=== PATIENT | female | born 1945 | race Caucasian/White ===

== ENCOUNTER → 2016-11-18 | Outpatient (REF) | payer MEDICARE ==
[2016-11-18 18:03] LABS: BLOOD UREA NITROGEN 21 MG/DL (7-18); CREATININE FOR GFR 0.79 MG/DL (0.55-1.02); GLOMERULAR FILTRATION RATE > 60.0 (>39)
== END ==
LOC: M LABDRAW1 17:08
PROVIDERS: ATTEND Physician Assistant Surgical
DX: M54.5 Low back pain (principal)

== ENCOUNTER → 2017-03-29 | Outpatient (REF) | payer MEDICARE ==
[2017-03-29 11:12] LABS: MEAN CORPUSCULAR HEMOGLOBIN 31.9 pg (27.0-33.0); MEAN CORPUSCULAR HGB CONC 33.8 g/dl (32.0-36.5); MEAN CORPUSCULAR VOLUME 94.4 fl (80.0-96.0); WHITE BLOOD COUNT 7.8 K/mm3 (4.0-10.0)
[2017-03-29 11:46] LABS: ALBUMIN 4.1 GM/DL (3.2-5.2); ALBUMIN/GLOBULIN RATIO 1.11 (1.00-1.93); ALKALINE PHOSPHATASE 74 U/L (45-117); ALT/SGPT 31 U/L (12-78); ANION GAP 8 MEQ/L (8-16); AST/SGOT 19 U/L (15-37); BILIRUBIN,TOTAL 0.8 MG/DL (0.2-1.0); BLOOD UREA NITROGEN 30 MG/DL (7-18); CALCIUM LEVEL 9.6 MG/DL (8.8-10.2); CARBON DIOXIDE LEVEL 30 MEQ/L (21-32); CHLORIDE LEVEL 101 MEQ/L (98-107); CHOLESTEROL LEVEL 200 MG/DL (<200); CREATININE FOR GFR 0.75 MG/DL (0.55-1.02); GLOMERULAR FILTRATION RATE > 60.0 (>39); GLUCOSE, FASTING 120 MG/DL (83-110); MAGNESIUM LEVEL 2.2 MG/DL (1.8-2.4); POTASSIUM SERUM 4.6 MEQ/L (3.5-5.1); SODIUM LEVEL 139 MEQ/L (136-145); TOTAL PROTEIN 7.8 GM/DL (6.4-8.2); TRIGLYCERIDES LEVEL 96 MG/DL (<150)
[2017-03-29 11:48] LABS: VITAMIN B12 LEVEL 652 PG/ML
== END ==
LOC: M SFHCPLAZ 08:38
PROVIDERS: ATTEND Nurse Practitioner Family
DX: D51.8 Other vitamin B12 deficiency anemias (principal); E88.81 Metabolic syndrome and other insulin resistance; E55.9 Vitamin D deficiency, unspecified; Z79.899 Other long term (current) drug therapy

== ENCOUNTER → 2017-08-30 | Outpatient (REF) | payer MEDICARE ==
[2017-08-30 12:17] LABS: ALBUMIN 4.1 GM/DL (3.2-5.2); ALBUMIN/GLOBULIN RATIO 1.21 (1.00-1.93); ALKALINE PHOSPHATASE 70 U/L (45-117); ALT/SGPT 26 U/L (12-78); ANION GAP 7 MEQ/L (8-16); AST/SGOT 16 U/L (15-37); BILIRUBIN,TOTAL 0.8 MG/DL (0.2-1.0); BLOOD UREA NITROGEN 24 MG/DL (7-18); CALCIUM LEVEL 9.8 MG/DL (8.8-10.2); CARBON DIOXIDE LEVEL 28 MEQ/L (21-32); CHLORIDE LEVEL 106 MEQ/L (98-107); CREATININE FOR GFR 0.72 MG/DL (0.55-1.02); GLOMERULAR FILTRATION RATE > 60.0 (>39); GLUCOSE, FASTING 104 MG/DL (83-110); POTASSIUM SERUM 4.6 MEQ/L (3.5-5.1); SODIUM LEVEL 141 MEQ/L (136-145); TOTAL PROTEIN 7.5 GM/DL (6.4-8.2)
== END ==
LOC: M SFHCPLAZ 10:46
PROVIDERS: ATTEND Nurse Practitioner Family
DX: E88.81 Metabolic syndrome and other insulin resistance (principal); E55.9 Vitamin D deficiency, unspecified

== ENCOUNTER → 2017-08-30 | Outpatient (CLI) | payer MEDICARE ==
--- NOTE | 2017-08-30 12:32 | REP ---
MAMMOGRAM LEFT BREAST: HISTORY: Right breast cancer and mastectomy. Family history of mother with breast cancer. MLO and CC views of the left breast are performed including implant displaced views. Left breast implant demonstrates contour abnormality superiorly, which may represent an intracapsular rupture of the implant. The breast parenchyma itself is predominantly fatty replaced with no mass or architectural distortion. No clustered microcalcifications are seen. Small benign appearing axillary lymph nodes are seen. IMPRESSION: ACR 2 benign. No suspicious mass or clustered microcalcifications. However, there is contour abnormality of the superior aspect of the breast implant which may indicate intracapsular rupture. BI-RADS/ACR category 2 mammogram. Benign finding(s). Routine annual screening mammography (for women over age 40). This mammogram was interpreted with the aid of an FDA-approved computer-aided detection system. A. Negative x-ray reports should not delay biopsy if a dominant or clinically suspicious mass is present. B. Four to eight percent of cancers are not identified by x-ray. C. Adenosis and dense breasts may obscure an underlying neoplasm. The patient states she/he had a clinical breast exam in July 2017. The patient letter being requested is M1.
--- NOTE | 2017-08-31 09:29 | DEXA ---
AP SPINE L1 - L4 1.083 -0.9 0.8 LT FEMUR TOTAL 0.882 -1.0 0.7 RT FEMUR TOTAL 0.827 -1.4 0.2 TOTAL BODY TOTAL OTHER DUAL FEMUR FRAX* ASSESSMENT Risk factors: 10 year probability of fracture Major osteoporotic fracture % Hip fracture % COMMENTS: Normal bone densitometry of the spine. There is low bone density of the hips. The decreased density of the spine does represent a significant change. The decreased density of the left hip does not represent a significant change. The decreased density of the right hip does represent a significant change. The density of the spine has increased 4.8% since the initial exam on 10/2004. The spine density has decreased 2.8% since the most recent exam on 08/2015. The density of the left hip has decreased 9.4% since the initial exam on 2008. The density of the left hip has decreased 0.6% since the most recent exam on 2014. The density of the right hip has decreased 8.6% since the initial exam on 2006. The density of the right hip has decreased 4.3% since the most recent exam on . FOLLOW-UP: Recommendation for the next bone density exam: 2 years. AMOLD
== END ==
LOC: M WHC 10:58
PROVIDERS: ATTEND Obstetrics & Gynecology
DX: Z12.31 Encounter for screening mammogram for malignant neoplasm of breast (principal); Z13.820 Encounter for screening for osteoporosis; E88.81 Metabolic syndrome and other insulin resistance; E55.9 Vitamin D deficiency, unspecified; M81.0 Age-related osteoporosis without current pathological fracture; Z85.3 Personal history of malignant neoplasm of breast; Z80.3 Family history of malignant neoplasm of breast; Z79.899 Other long term (current) drug therapy
CPT/HCPCS: 36415; 77080; 80053; 82306; 83036; G0202

== ENCOUNTER → 2018-03-02 | Outpatient (REF) | payer MEDICARE ==
[2018-03-02 11:02] LABS: HEMATOCRIT 41.9 % (36.0-47.0); HEMOGLOBIN 13.8 g/dl (12.0-15.5); MEAN CORPUSCULAR HEMOGLOBIN 30.1 pg (27.0-33.0); MEAN CORPUSCULAR HGB CONC 32.9 g/dl (32.0-36.5); MEAN CORPUSCULAR VOLUME 91.3 fl (80.0-96.0); PLATELET COUNT, AUTOMATED 291 10^3/uL (150-450); RED BLOOD COUNT 4.59 10^6/uL (4.00-5.40); RED CELL DISTRIBUTION WIDTH 12.3 % (11.5-14.5); WHITE BLOOD COUNT 6.6 10^3/uL (4.0-10.0)
[2018-03-02 11:20] LABS: ESTIMATED AVERAGE GLUCOSE 128 MG/DL (60-110); HEMOGLOBIN A1c 6.1 %
[2018-03-02 11:25] LABS: ALBUMIN 4.3 GM/DL (3.2-5.2); ALBUMIN/GLOBULIN RATIO 1.23 (1.00-1.93); ALKALINE PHOSPHATASE 78 U/L (45-117); ALT/SGPT 23 U/L (12-78); ANION GAP 5 MEQ/L (8-16); AST/SGOT 15 U/L (7-37); BILIRUBIN,TOTAL 0.8 MG/DL (0.2-1.0); BLOOD UREA NITROGEN 25 MG/DL (7-18); CALCIUM LEVEL 9.7 MG/DL (8.8-10.2); CARBON DIOXIDE LEVEL 29 MEQ/L (21-32); CHLORIDE LEVEL 108 MEQ/L (98-107); CREATININE FOR GFR 0.79 MG/DL (0.55-1.30); GLOMERULAR FILTRATION RATE > 60.0 (>39); GLUCOSE, FASTING 114 MG/DL (70-100); POTASSIUM SERUM 4.6 MEQ/L (3.5-5.1); SODIUM LEVEL 142 MEQ/L (136-145); TOTAL PROTEIN 7.8 GM/DL (6.4-8.2)
[2018-03-02 11:37] LABS: TOTAL 25(OH) VITAMIN D 45.3 NG/ML (30.0-100.0)
[2018-03-02 11:38] LABS: VITAMIN B12 LEVEL 667 PG/ML
[2018-03-02 11:42] LABS: FOLATE 10.1 NG/ML
== END ==
LOC: M SFHCPLAZ 07:49
DX: E53.8 Deficiency of other specified B group vitamins (principal); E88.81 Metabolic syndrome and other insulin resistance; E55.9 Vitamin D deficiency, unspecified
CPT/HCPCS: 82746

== ENCOUNTER 2018-04-10 07:09 | Day surgery (SDC) | payer MEDICARE ==
[2018-04-10] MEDS: NS 1,000 ML IV ×2 (07:00)
[2018-04-10] MEDS ORDERED: LIDOCAINE 2% INJ 100 MG/5 ML SDV (FOR ANES.) As Ordered ×2 (08:20)
[2018-04-10] MEDS ORDERED: PROPOFOL 200 MG/20 ML VIAL As Ordered ×8 (08:20→08:35)
== END 2018-04-10 09:46 | disposition home or self-care (01) ==
LOC: M OPP 07:09
DX: R19.5 Other fecal abnormalities (principal); D12.2 Benign neoplasm of ascending colon; D12.3 Benign neoplasm of transverse colon; K57.30 Diverticulosis of large intestine without perforation or abscess without bleeding; K44.9 Diaphragmatic hernia without obstruction or gangrene; K21.9 Gastro-esophageal reflux disease without esophagitis; K29.70 Gastritis, unspecified, without bleeding; D51.0 Vitamin B12 deficiency anemia due to intrinsic factor deficiency; Z79.82 Long term (current) use of aspirin; Z79.899 Other long term (current) drug therapy; Z88.5 Allergy status to narcotic agent; Z88.8 Allergy status to other drugs, medicaments and biological substances; Z91.048 Other nonmedicinal substance allergy status; Z85.3 Personal history of malignant neoplasm of breast; Z90.711 Acquired absence of uterus with remaining cervical stump; Z87.891 Personal history of nicotine dependence; Z85.42 Personal history of malignant neoplasm of other parts of uterus; Z83.6 Family history of other diseases of the respiratory system; Z98.82 Breast implant status
CPT/HCPCS: 45385

== ENCOUNTER → 2018-08-31 | Outpatient (CLI) | payer MEDICARE | LOC: M WHC 09:59 | DX: Z12.31 Encounter for screening mammogram for malignant neoplasm of breast (principal) | CPT/HCPCS: 77067 ==

== ENCOUNTER 2018-09-04 07:23 | Day surgery (SDC) | payer MEDICARE ==
[~2018-09-04 07:23] MED LIST: LIDOCAINE 2% INJ 100 MG/5 ML SDV (FOR ANES.) As Ordered; PROPOFOL 200 MG/20 ML VIAL As Ordered
[2018-09-04] MEDS: NS 1,000 ML IV (07:56)
== END 2018-09-04 09:55 | disposition home or self-care (01) ==
LOC: M OPP 07:23
DX: Z12.11 Encounter for screening for malignant neoplasm of colon (principal); Z86.010 Personal history of colon polyps; D12.2 Benign neoplasm of ascending colon; K64.8 Other hemorrhoids; K57.30 Diverticulosis of large intestine without perforation or abscess without bleeding; M19.90 Unspecified osteoarthritis, unspecified site; Z85.3 Personal history of malignant neoplasm of breast; Z85.42 Personal history of malignant neoplasm of other parts of uterus; Z92.21 Personal history of antineoplastic chemotherapy; Z90.11 Acquired absence of right breast and nipple; K21.9 Gastro-esophageal reflux disease without esophagitis; Z87.891 Personal history of nicotine dependence; Z88.8 Allergy status to other drugs, medicaments and biological substances; Z88.5 Allergy status to narcotic agent; Z88.2 Allergy status to sulfonamides; Z91.048 Other nonmedicinal substance allergy status; Z79.82 Long term (current) use of aspirin; Z79.899 Other long term (current) drug therapy; Z80.9 Family history of malignant neoplasm, unspecified
CPT/HCPCS: 45385

== ENCOUNTER → 2019-01-08 | Outpatient (REF) | payer MEDICARE ==
[~2019-01-08] MED LIST changes: +ASPI81TA85 PO; +BENT10CA PO; +CALC500T21 PO; +CYAN1000VL IM; +LECI1200 PO; -LIDOCAINE 2% INJ 100 MG/5 ML SDV (FOR ANES.) As Ordered; +LUTE10TA PO; +MAGN500T2 PO; +NATU400T PO; +OMEG1CAP16 PO; -PROPOFOL 200 MG/20 ML VIAL As Ordered; +VITA20008 PO; +VITA500T PO
[2019-01-08 12:45] LABS: HEMATOCRIT 40.7 % (36.0-47.0); HEMOGLOBIN 13.5 g/dl (12.0-15.5); MEAN CORPUSCULAR HEMOGLOBIN 30.1 pg (27.0-33.0); MEAN CORPUSCULAR HGB CONC 33.2 g/dl (32.0-36.5); MEAN CORPUSCULAR VOLUME 90.8 fl (80.0-96.0); PLATELET COUNT, AUTOMATED 266 10^3/uL (150-450); RED BLOOD COUNT 4.48 10^6/uL (4.00-5.40); WHITE BLOOD COUNT 6.4 10^3/uL (4.0-10.0)
[2019-01-08 13:19] LABS: ALT/SGPT 25 U/L (12-78); BLOOD UREA NITROGEN 18 MG/DL (7-18); CALCIUM LEVEL 9.4 MG/DL (8.8-10.2); CARBON DIOXIDE LEVEL 28 MEQ/L (21-32); CHLORIDE LEVEL 106 MEQ/L (98-107); CHOLESTEROL LEVEL 168 MG/DL (<200); CHOLESTEROL RISK RATIO 3.169 (<5); CREATININE FOR GFR 0.71 MG/DL (0.55-1.30); GLOMERULAR FILTRATION RATE > 60.0 (>39); GLUCOSE, FASTING 99 MG/DL (70-100); HDL CHOLESTEROL 53 MG/DL (>40); LDL CHOLESTEROL 89 MG/DL (<100); NON-HDL-C 115 MG/DL; POTASSIUM SERUM 4.7 MEQ/L (3.5-5.1); SODIUM LEVEL 140 MEQ/L (136-145); TOTAL 25(OH) VITAMIN D 47.6 NG/ML (30.0-100.0); TOTAL PROTEIN 7.5 GM/DL (6.4-8.2); TRIGLYCERIDES LEVEL 130 MG/DL (<150)
[2019-01-08 15:41] LABS: HEMOGLOBIN A1c 6.3 %
== END ==
LOC: M SFHCPLAZ 08:57
PROVIDERS: ATTEND Nurse Practitioner Family
DX: E53.8 Deficiency of other specified B group vitamins (principal); E88.81 Metabolic syndrome and other insulin resistance; E55.9 Vitamin D deficiency, unspecified

== ENCOUNTER → 2019-07-25 | Outpatient (REF) | payer MEDICARE ==
[2019-07-25 10:14] LABS: HEMOGLOBIN A1c 5.8 %
[2019-07-25 10:27] LABS: ALT/SGPT 24 U/L (12-78); BILIRUBIN,TOTAL 0.7 MG/DL (0.2-1.0); BLOOD UREA NITROGEN 19 MG/DL (7-18); CALCIUM LEVEL 9.8 MG/DL (8.8-10.2); CARBON DIOXIDE LEVEL 28 MEQ/L (21-32); CHLORIDE LEVEL 107 MEQ/L (98-107); CREATININE FOR GFR 0.72 MG/DL (0.55-1.30); GLOMERULAR FILTRATION RATE > 60.0 (>39); GLUCOSE, FASTING 113 MG/DL (70-100); POTASSIUM SERUM 4.7 MEQ/L (3.5-5.1); SODIUM LEVEL 142 MEQ/L (136-145); TOTAL PROTEIN 7.1 GM/DL (6.4-8.2)
[2019-07-25 10:33] LABS: FOLATE 13.9 NG/ML; VITAMIN B12 LEVEL 944 PG/ML
== END ==
LOC: M SFHCPLAZ 08:14
PROVIDERS: ATTEND Nurse Practitioner Family
DX: R73.03 Prediabetes (principal); M85.80 Other specified disorders of bone density and structure, unspecified site; E53.8 Deficiency of other specified B group vitamins; Z79.82 Long term (current) use of aspirin; Z79.899 Other long term (current) drug therapy

== ENCOUNTER → 2019-09-04 | Outpatient (CLI) | payer MEDICARE ==
[~2019-09-04] MED LIST changes: +B-12100011 SL; +CALC-190 PO; +DICY20TA11 PO; +LECI1CAP PO; +LECI1CAP2 PO; +LOPE2TAB12 PO; +MAGN1CAP PO; +OCUV1CAP4 PO; +OMEGCAP4 PO; +PROBCAP14 PO; +VITA-157 PO; +VITA200020 PO; +VITA500C24 PO; +vitamin B12 SC
--- NOTE | 2019-09-04 14:13 | REP ---
UNILATERAL MAMMOGRAM LEFT BREAST WITH BREAST TOMOSYNTHESIS: HISTORY: Right breast cancer and mastectomy 1985. History of bilateral breast implants 2005. Family history of breast cancer at age 50 in mother. Left breast mammogram performed with digital tomosynthesis. Left breast implant is grossly intact with no evidence of extracapsular rupture. I see no mass or architectural distortion. No clustered microcalcifications are seen. There is no change since the prior study, most recent of which is 08/31/2018. IMPRESSION: BIRADS 1: BI-RADS/ACR category 1 mammogram. Negative Mammogram. ACR 1 negative mammogram left breast in this patient status post right mastectomy. Suggest followup mammogram in 1 year. This mammogram was interpreted with the aid of an FDA-approved computer-aided detection system. The patient states he/she had a clinical breast exam in 07/2019. The patient letter being requested is M1.
--- NOTE | 2019-09-09 15:46 | DEXA ---
AP SPINE L1 - L4 1.133 -0.5 1.3 LT FEMUR TOTAL 0.835 -1.4 0.4 LT NECK 0.811 -1.6 0.3 RT FEMUR TOTAL 0.801 -1.6 0.1 RT NECK 0.795 -1.7 0.2 TOTAL BODY TOTAL OTHER COMMENTS: Normal bone densitometry of the spine. There is low bone density of the hips. The increased density of the spine does represent a significant change. The decreased density of the left hip does represent significant change. The decreased density of the right hip does represent a significant change. The density of the spine has increased 9.7% since the initial exam on 11/10/2004. The spine density has increased 4.6% since the most recent exam on 08/30/2017. The density of the left hip has decreased 14.2% since the initial exam on 10/22/2009. The density of the left hip has decreased 5.3% since the most recent exam on 08/30/2017. The density of the right hip has decreased 11.5% since the initial exam on 05/30/2007. The density of the right hip has decreased 3.1% since the most recent exam on 08/30/2017. FOLLOW-UP: Recommendation for the next bone density exam: 2 years. CELINA
== END ==
LOC: M WHC 10:27
PROVIDERS: ATTEND Obstetrics & Gynecology
DX: Z12.31 Encounter for screening mammogram for malignant neoplasm of breast (principal); Z13.820 Encounter for screening for osteoporosis; Z85.3 Personal history of malignant neoplasm of breast; Z90.11 Acquired absence of right breast and nipple; Z80.3 Family history of malignant neoplasm of breast; M85.851 Other specified disorders of bone density and structure, right thigh; M85.852 Other specified disorders of bone density and structure, left thigh

== ENCOUNTER 2019-09-13 08:15 | Day surgery (SDC) | payer MEDICARE ==
[~2019-09-13] VITALS: Ht 157.5 cm; Wt 76.7 kg
[~2019-09-13 08:15] MED LIST changes: +NS 1,000 ML IV ONE
--- NOTE | 2019-09-13 10:04 | ROOR ---
Patient Name: Anna Liriano Procedure Date: 09/13/2019 9:11 AM Date of : 1945 Age: 74 Room: [facility] Gender: Female Note Status: Finalized Procedure: Colonoscopy Indications: Change in bowel habits Providers: Wilver Parikh MD Referring MD: Chichi Sawant NP Requesting Provider: Medicines: Monitored Anesthesia Care Complications: No immediate complications. Procedure: Pre-Anesthesia Assessment: - Prior to the procedure, a History and Physical was performed, and patient medications and allergies were reviewed. The patient is competent. The risks and benefits of the procedure and the sedation options and risks were discussed with the patient. All questions were answered and informed consent was obtained. Patient identification and proposed procedure were verified by the physician, the nurse and the anesthesiologist in the procedure room. Mental Status Examination: alert and oriented. Airway Examination: normal oropharyngeal airway and neck mobility. Respiratory Examination: clear to auscultation. CV Examination: normal. Prophylactic Antibiotics: The patient does not require prophylactic antibiotics. Prior Anticoagulants: The patient has taken no previous anticoagulant or antiplatelet agents. ASA Grade Assessment: II - A patient with mild systemic disease. After reviewing the risks and benefits, the patient was deemed in satisfactory condition to undergo the procedure. The anesthesia plan was to use monitored anesthesia care (MAC). Immediately prior to administration of medications, the patient was re-assessed for adequacy to receive sedatives. The heart rate, respiratory rate, oxygen saturations, blood pressure, adequacy of pulmonary ventilation, and response to care were monitored throughout the procedure. The physical status of the patient was re-assessed after the procedure. The Colonoscope was introduced through the anus and advanced to the terminal ileum, with identification of the appendiceal orifice and IC valve. The colonoscopy was performed without difficulty. The patient tolerated the procedure well. The quality of the bowel preparation was good. The terminal ileum, ileocecal valve, appendiceal orifice, and rectum were photographed. Scope insertion time was 3 minutes. Scope withdrawal time was 10 minutes. The total duration of the procedure was 14 minutes. Findings: The perianal and digital rectal examinations were normal. The terminal ileum appeared normal. A diminutive polyp was found in the ascending colon. The polyp was sessile. The polyp was removed with a jumbo cold forceps. Resection and retrieval were complete. Verification of patient identification for the specimen was done by the physician and nurse using the patient's name, date and medical record number. Estimated blood loss was minimal. A diminutive polyp was found in the descending colon. The polyp was sessile. The polyp was removed with a jumbo cold forceps. Resection and retrieval were complete. Multiple small and large-mouthed diverticula were found from sigmoid to descending colon. There was no evidence of diverticular bleeding. Non-bleeding external and internal hemorrhoids were found during retroflexion. The hemorrhoids were medium-sized. Normal mucosa was found in the entire colon. Biopsies for histology were taken with a cold forceps from the rectosigmoid colon for evaluation of microscopic colitis. Impression: - The examined portion of the ileum was normal. - One diminutive polyp in the ascending colon, removed with a jumbo cold forceps. Resected and retrieved. - One diminutive polyp in the descending colon, removed with a jumbo cold forceps. Resected and retrieved. - Moderate diverticulosis from sigmoid to descending colon. There was no evidence of diverticular bleeding. - Non-bleeding external and internal hemorrhoids. - Normal mucosa in the entire examined colon. Biopsied. Recommendation: - Patient has a contact number available for emergencies. The signs and symptoms of potential delayed complications were discussed with the patient. Return to normal activities tomorrow. Written discharge instructions were provided to the patient. - High fiber diet. - Continue present medications. - Await pathology results. - Repeat colonoscopy in 3 years for surveillance of high-grade dysplasia and due to personal history of colon polyps in past Colonoscopy. - Telephone GI clinic for pathology results in 2 weeks. - Return to primary care physician. Wilver Parikh MD Wilver Parikh MD 09/13/2019 10:03:52 AM Electronically signed by Wilver Parikh MD Number of Addenda: 0 Note Initiated On: 09/13/2019 9:11 AM Estimated Blood Loss: Estimated blood loss was minimal.
[2019-09-13 10:10] VITALS: BP 163/89
[2019-09-13] MEDS ORDERED: LIDOCAINE 2% INJ 100 MG/5 ML SDV (FOR ANES.) As Ordered ONE (10:33)
[2019-09-13] MEDS ORDERED: PROPOFOL 500 MG/50 ML VIAL As Ordered ONE (10:33)
== END 2019-09-13 10:40 | disposition home or self-care (01) ==
LOC: M OPP 08:15
PROVIDERS: ATTEND Internal Medicine Gastroenterology
DX: K64.8 Other hemorrhoids (principal); D12.2 Benign neoplasm of ascending colon; D12.4 Benign neoplasm of descending colon; K57.30 Diverticulosis of large intestine without perforation or abscess without bleeding; R19.4 Change in bowel habit; Z79.82 Long term (current) use of aspirin; Z88.2 Allergy status to sulfonamides; Z88.5 Allergy status to narcotic agent; Z88.8 Allergy status to other drugs, medicaments and biological substances; Z91.048 Other nonmedicinal substance allergy status; Z85.3 Personal history of malignant neoplasm of breast; Z85.42 Personal history of malignant neoplasm of other parts of uterus; Z87.891 Personal history of nicotine dependence; Z92.21 Personal history of antineoplastic chemotherapy

== ENCOUNTER → 2020-01-15 | Outpatient (REF) | payer MEDICARE ==
[~2020-01-15] MED LIST changes: -NS 1,000 ML IV ONE
[2020-01-15 12:27] LABS: ALBUMIN 4.1 GM/DL (3.2-5.2); ALT/SGPT 26 U/L (12-78); BILIRUBIN,TOTAL 0.6 MG/DL (0.2-1.0); BLOOD UREA NITROGEN 20 MG/DL (7-18); CALCIUM LEVEL 9.8 MG/DL (8.8-10.2); CARBON DIOXIDE LEVEL 30 MEQ/L (21-32); CHLORIDE LEVEL 106 MEQ/L (98-107); CHOLESTEROL LEVEL 156 MG/DL (<200); CHOLESTEROL RISK RATIO 3.545 (<5); CREATININE FOR GFR 0.71 MG/DL (0.55-1.30); GLOMERULAR FILTRATION RATE > 60.0 (>39); GLUCOSE, FASTING 100 MG/DL (70-100); HDL CHOLESTEROL 44 MG/DL (>40); LDL CHOLESTEROL 93 MG/DL (<100); NON-HDL-C 112 MG/DL; POTASSIUM SERUM 4.6 MEQ/L (3.5-5.1); SODIUM LEVEL 142 MEQ/L (136-145); TOTAL PROTEIN 7.1 GM/DL (6.4-8.2); TRIGLYCERIDES LEVEL 93 MG/DL (<150)
[2020-01-15 13:17] LABS: HEMOGLOBIN A1c 5.6 %
== END ==
LOC: M SFHCPLAZ 09:02
PROVIDERS: ATTEND Nurse Practitioner Family
DX: R73.03 Prediabetes (principal)

== ENCOUNTER → 2020-08-03 | Outpatient (CLI) | payer MEDICARE ==
[~2020-08-03] MED LIST changes: -ASPI81TA85 PO; +ASPI81TA86 PO; +VITA-243 PO; -VITA500T PO
[2020-08-03 14:47] LABS: FOLATE 11.1 NG/ML (>5.4); TOTAL 25(OH) VITAMIN D 54.3 NG/ML (30.0-100.0); VITAMIN B12 LEVEL 567 PG/ML (247-911)
[2020-08-03 14:52] LABS: ALBUMIN 4.1 GM/DL (3.2-5.2); ALT/SGPT 24 U/L (12-78); BLOOD UREA NITROGEN 19 MG/DL (7-18); CARBON DIOXIDE LEVEL 29 MEQ/L (21-32); CHLORIDE LEVEL 107 MEQ/L (98-107); CREATININE FOR GFR 0.67 MG/DL (0.55-1.30); GLOMERULAR FILTRATION RATE > 60.0 (>39); GLUCOSE, FASTING 99 MG/DL (70-100); POTASSIUM SERUM 4.3 MEQ/L (3.5-5.1); SODIUM LEVEL 139 MEQ/L (136-145); TOTAL PROTEIN 7.6 GM/DL (6.4-8.2)
[2020-08-03 15:05] LABS: HEMOGLOBIN A1c 5.5 %
== END ==
LOC: M PLALAB 10:42
PROVIDERS: ATTEND Nurse Practitioner Family
DX: E53.8 Deficiency of other specified B group vitamins (principal); M85.80 Other specified disorders of bone density and structure, unspecified site; R73.03 Prediabetes

== ENCOUNTER → 2020-09-07 | Outpatient (CLI) | payer MEDICARE ==
--- NOTE | 2020-09-07 09:07 | REPMRS ---
Patient History The patient states she had a clinical breast exam in May 2020. Patient is postmenopausal, has history of endometrial cancer at age 66, has history of cancer in the right breast at age 40, and had previous chemotherapy at age 40. Family history of breast cancer at age 50 in mother, pancreatic cancer at age 50 or over in maternal aunt. Retro-pectoral saline implant in the left breast, 2005. Implant in the right breast, 2005. Implants in both breasts, 1985. Malignant mastectomy of the right breast, 1985. 3D TOMOSYNTHESIS WAS PERFORMED. [employer] breast density d. Digital Woman Screen Mammo: September 07, 2020 - Exam #: [id number] CC and MLO view(s) were taken of the left breast. Technologist: RT Tesfaye Prior study comparison: September 04, 2019, bilateral digital woman screen mammo performed at [facility]. August 31, 2018, bilateral digital woman screen mammo performed at [facility]. FINDINGS: There are scattered fibroglandular densities. There has been no change in the appearance of the mammogram from the prior studies. There is a mild amount of residual fibroglandular tissue. There is no interval development of dominant mass, architectural distortion, or clustered microcalcification suggestive of malignancy. No significant changes when compared with prior studies. Assessment: BI-RADS/ACR category 1 mammogram. Negative Mammogram. Recommendation Routine screening mammogram in 1 year (for women over age 40). This mammogram was interpreted with the aid of an FDA-approved computer-aided dectection system. Electronically Signed By: Harshad Davis MD 09/07/20 0906
== END ==
LOC: M WHC 07:50
PROVIDERS: ATTEND Advanced Practice Midwife
DX: Z12.31 Encounter for screening mammogram for malignant neoplasm of breast (principal)

== ENCOUNTER → 2021-01-29 | Outpatient (CLI) | payer MEDICARE ==
[~2021-01-29] MED LIST changes: +D31000TA2 PO; +MAGN250T7 PO; +RA M500C PO; +TURM500C5 PO; -VITA-157 PO; +VITAE40CA PO; +[UNRECOGNIZED DRUG - CODE] PO
== END ==
LOC: M LABSMTC 10:08
PROVIDERS: ATTEND Anesthesiology
DX: Z01.812 Encounter for preprocedural laboratory examination (principal); Z20.822 Contact with and (suspected) exposure to COVID-19

== ENCOUNTER → 2021-01-29 | Outpatient (CLI) | payer MEDICARE ==
--- NOTE | 2021-01-29 11:33 | ECGEPIP ---
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 No prior ECG available for comparison at the time of interpretation. Electronically Signed on 01-29-2021 11:33:25 EDT by Mohsen Can
== END ==
LOC: M EKG 10:35
PROVIDERS: ATTEND Anesthesiology
DX: Z01.818 Encounter for other preprocedural examination (principal); Z79.899 Other long term (current) drug therapy; Z20.822 Contact with and (suspected) exposure to COVID-19
CPT/HCPCS: 93005; U0003

== ENCOUNTER → 2021-02-11 | Outpatient (CLI) | payer MEDICARE | LOC: M LABSMTC 09:37 | PROVIDERS: ATTEND Anesthesiology | DX: Z01.812 Encounter for preprocedural laboratory examination (principal); Z20.822 Contact with and (suspected) exposure to COVID-19 ==

== ENCOUNTER 2021-02-16 07:29 | Day surgery (SDC) | payer MEDICARE ==
[~2021-02-16] VITALS: Ht 157.5 cm; Wt 76.2 kg
[~2021-02-16 07:29] MED LIST changes: +LIDOCAINE 1% MDV 20ML VIAL SQ PRN; +LR 1,000 ML IV ONE
[2021-02-16] MEDS ORDERED: ROCURONIUM BROMIDE 50 MG/5 ML VIAL As Ordered ONE (08:37)
[2021-02-16] MEDS ORDERED: METOCLOPRAMIDE INJ 10MG/2ML VIAL (J2765 PER 1) As Ordered ONE (08:37)
[2021-02-16] MEDS ORDERED: LIDOCAINE 2% 100MG/5ML SDV (FOR ANES.) As Ordered ONE (08:37)
[2021-02-16] MEDS ORDERED: propofoL 200 MG/20 ML VIAL As Ordered ONE (08:37)
[2021-02-16] MEDS ORDERED: ONDANSETRON 4MG/2ML VIAL As Ordered ONE (08:37)
[2021-02-16] MEDS ORDERED: fentaNYL 100 MCG/2 ML INJECTION (J3010) As Ordered ONE ×2 (08:38→10:11)
[2021-02-16] MEDS ORDERED: LIDOCAINE W/EPINEPHRINE 1% 20ML VIAL As Ordered ONE (08:41)
[2021-02-16] MEDS ORDERED: CIPRODEX OTIC SUSP 7.5ML As Ordered ONE (08:41)
[2021-02-16] MEDS ORDERED: EPINEPHrine 1MG/ML INJ 30ML MD-VIAL As Ordered ONE (08:41)
[2021-02-16] MEDS ORDERED: dexameTHASONE 4 MG/ML 1ML VIAL (J1100 PER 1MG) As Ordered ONE (11:23)
[2021-02-16] MEDS ORDERED: SUGAMMADEX SODIUM 500 MG/5 ML VIAL (BRIDION) As Ordered ONE (11:53)
[2021-02-16] MEDS ORDERED: fentaNYL 100 MCG/2 ML INJECTION (J3010) IV PRN (12:20)
[2021-02-16] MEDS ORDERED: LR 1,000 ML IV SCH ×2 (12:20→12:25)
[2021-02-16] MEDS ORDERED: METOCLOPRAMIDE INJ 10MG/2ML VIAL (J2765 PER 1) IV PRN (12:20)
[2021-02-16] MEDS ORDERED: ONDANSETRON 4MG/2ML VIAL IV PRN (12:20)
[2021-02-16] MEDS ORDERED: PERCOCET 5MG/325MG TAB PO PRN (12:20)
[2021-02-16] MEDS ORDERED: ACETAMINOPH W/CODEINE #3 TAB UD PO PRN (12:25)
--- NOTE | 2021-02-16 13:11 | RO ---
OPERATIVE NOTE DATE OF OPERATION: 02/16/2021 PREOPERATIVE DIAGNOSIS: Right retraction pocket. POSTOPERATIVE DIAGNOSIS: Right cholesteatoma. OPERATIVE PROCEDURE: Right tympanomastoidectomy. SURGEON: Nico Baptiste MD STRAIGHT EDGER: ANESTHESIA: FINDINGS: There was a cholesteatoma in the attic area which extended up into the epitympanum. It was just medial to the head of the malleus down to the incus and with erosion of the incudostapedial joint. There was some in the facial recess area. The facial nerve was monitored during the procedure. The facial nerve was not injured. I did stimulate it during and after the procedure. It was intact. DESCRIPTION OF PROCEDURE: Under general anesthesia with the patient intubated the patient was prepped and draped in usual manner. I infiltrated with Lidocaine with Epinephrine. I started first by making a posterior tympanotomy incision and then lateral incisions. I then made a postauricular incision down to the mastoid bone. I then elevated superiorly and harvested temporalis fascia graft. This was prepared. I then opened into the ear canal from posteriorly. Once this was done I reflected the ear anterior. The above findings were seen. I drilled down into the mastoid cavity. I identified the middle fossa plate. I followed anteromedially and identified the attic area. I could see cholesteatoma there. I drilled off the anterior aspect of the dissection of mastoid bone identifying the epitympanic area. I then followed the ear canal superiorly into this area. Once this was done then I went into the ear and I drilled to the attic area. I then joined these two dissections. Using blunt dissection I was able to manipulate the cholesteatoma out. It was removed piecemeal. I started first superiorly. I then could see it went medial to the malleus. I was able to manipulate it out from under the malleus. I then went through facial recess approach so that I could see the tumor as it extended down to the incus. I did remove the stapes. I did remove the incus during the dissection. I did identify the chorda tympani nerve. I could see the facial nerve superior to the stapes and it appeared to be intact. I did stimulate that. I dissected gently the cholesteatoma off this area and removed it. I checked to make sure there was no further cholesteatoma. Once this was done everything looked very good. I then harvested some conchal cartilage and trimmed it to the appropriate size. I did slice it thinner and then used a small piece and put it up in the attic area to close that area off. I then took some temporalis fascia and I laid it on top of that and tucked it underneath the tympanic membrane. The tympanic membrane was intact from about the 9 o'clock position over to the malleus and then up to the malleus superiorly. I tucked the fascia graft underneath the drum in this area. I then laid more temporalis fascia to completely cover the cartilage up superiorly. I then laid some Gelfoam with Ciprodex drips over the area. Once this was done then the canal was returned to its original position. I stented with open Iodoform gauze. The postauricular incision was then closed with 3-0 chromic and #0 Prolene. The patient tolerated the procedure well. Less than 10 mL estimated blood loss. The patient was extubated and transferred to the recovery room in excellent condition.
[2021-02-16] MEDS ORDERED: ACETAMINOPHEN *IV* 1,000 MG IV ONE ×2 (13:50)
[2021-02-16 14:55] VITALS: BP 143/68
== END 2021-02-16 15:05 | disposition home or self-care (01) ==
LOC: M SDC 07:29
PROVIDERS: ATTEND Otolaryngology
DX: H71.01 Cholesteatoma of attic, right ear (principal); K44.9 Diaphragmatic hernia without obstruction or gangrene; D64.9 Anemia, unspecified; Z85.3 Personal history of malignant neoplasm of breast; Z92.21 Personal history of antineoplastic chemotherapy; Z88.2 Allergy status to sulfonamides; Z88.5 Allergy status to narcotic agent; Z88.8 Allergy status to other drugs, medicaments and biological substances; Z79.899 Other long term (current) drug therapy
CPT/HCPCS: 69643; 88304; J0131; J1100; J2405; J2765; J3010

== ENCOUNTER → 2021-09-08 | Outpatient (CLI) | payer MEDICARE ==
[~2021-09-08] MED LIST changes: -LECI1CAP2 PO; -LIDOCAINE 1% MDV 20ML VIAL SQ PRN; -LR 1,000 ML IV ONE; +[UNRECOGNIZED DRUG - CODE] PO
--- NOTE | 2021-09-08 14:08 | DEXAMM ---
INDICATION: SCREENING OSTEOPOROSIS. COMPARISON: 09/04/2019 as well as other prior exams. TECHNIQUE: Bone density was measured using dual-energy x-ray absorptiometry (DEXA). FINDINGS: AP SPINE L1-L4 BMD 1.126 g/cm2 Young Adult T-Score -0.6 Age Matched Z-Score 1.2. LT FEMUR, TOTAL BMD 0.810 g/cm2 Young Adult T-Score -1.6 Age Matched Z-Score 0.3. LT NECK BMD 0.797 g/cm2 Young Adult T-Score -1.7 Age Matched Z-Score 0.3. RT FEMUR, TOTAL BMD 0.769 g/cm2 Young Adult T-Score -1.9 Age Matched Z-Score 0.0. RT NECK BMD 0.773 g/cm2 Young Adult T-Score -1.9 Age Matched Z-Score 0.1. IMPRESSION: There is normal bone density of the spine. There is low bone density of the left hip. There is low bone density of the right hip. The density of the spine has increased 9.0% since the initial exam on 11/10/2004. The density of the spine decreased 0.6% since most recent exam on 09/04/2019. The density of the left hip has decreased 16.8% since initial exam on 10/22/2009. The density of the left hip has decreased 3.0% since most recent exam on 09/04/2019. The density of the right hip has decreased 15.0% since the initial exam on 05/30/2007. The density of the right hip has decreased 4.0% since the most recent exam on 09/04/2019. FOLLOW-UP: Recommendation for the next bone density exam: 2 years. <Electronically signed by Harshad Davis > 09/08/21 [id number]
--- NOTE | 2021-09-08 16:23 | REPMRS ---
Patient History The patient states she had a clinical breast exam in January 2021. Patient is postmenopausal, has history of endometrial cancer at age 66, has history of cancer in the right breast at age 40, and had previous chemotherapy at age 40. Family history of breast cancer at age 50 in mother, pancreatic cancer at age 50 or over in maternal aunt, colorectal cancer under age 50 in unspecified relative, colorectal cancer under age 50 in brother. Retro-pectoral saline implant in the left breast, 2005. Implant in the right breast, 2005. Implants in both breasts, 1985. Malignant mastectomy of the right breast, 1985. Patient states no breast complaints today. Patient has signed MRS History Sheet. Digital Woman Screen Mammo: September 08, 2021 - Exam #: [id number] CC and MLO view(s) were taken of the left breast. Technologist: Abbey Aaron, Technologist Prior study comparison: September 07, 2020, bilateral digital woman screen mammo performed at [facility]. September 04, 2019, bilateral digital woman screen mammo performed at [facility]. FINDINGS: There are scattered fibroglandular densities. Screening. This patient?s lifetime risk for the development of invasive breast cancer can?t be calculated due to her history of breast cancer. Digital screening (2D) mammography was performed on the left. Additionally, breast tomosynthesis (3D mammography) was performed in the CC and MLO projections. Today's exam was compared to the prior exam/exams. By history, the patient has no complaints of a palpable breast abnormality or other significant breast complaints. The Volpara volumetric breast density category is B, there are scattered areas of fibroglandular densities. There is a left retropectoral, silicone breast prosthesis. The patient is status post right matectomy due to breast carcinoma. The breasts are unchanged in size and shape. There are no sydnie-areas of internal architectural distortion. There are no sydnie-soft tissue densities or areas of spiculation. There is unchanged post radiation skin thickening. IMPRESSION: BI-RADS Category 2- Benign Findings. There is no evidence of malignant alteration of the left breast.. Routine unilateral screening mammogram recommended at its regularly scheduled annual interval. This mammogram was read with the assistance of [employer],an FDA approved computer aided detection system for mammography. Negative x-ray reports should not delay surgical consultation if a dominant or clinically suspicious mass is present. Not all breast cancers can be identified by mammography. Therefore, we recommend that you continue to perform regular breast self-examination and physical examination and then promptly contact your physician of any concerns or changes. Adenosis and dense breasts may obscure an underlying neoplasm. No significant changes when compared with prior studies. Assessment: BI-RADS/ACR category 2 mammogram. Benign Findings. Recommendation Routine screening mammogram of both breasts in 1 year. Electronically Signed By: Faraz Black MD 09/08/21 [id number]
== END ==
LOC: M WHC 10:22
PROVIDERS: ATTEND Obstetrics & Gynecology
DX: Z13.820 Encounter for screening for osteoporosis (principal); Z12.31 Encounter for screening mammogram for malignant neoplasm of breast; Z78.0 Asymptomatic menopausal state; Z85.3 Personal history of malignant neoplasm of breast; Z85.42 Personal history of malignant neoplasm of other parts of uterus; Z92.21 Personal history of antineoplastic chemotherapy; Z80.3 Family history of malignant neoplasm of breast; Z98.82 Breast implant status; Z90.11 Acquired absence of right breast and nipple; M85.89 Other specified disorders of bone density and structure, multiple sites

== ENCOUNTER → 2021-10-12 | Outpatient (CLI) | payer MEDICARE ==
[~2021-10-12] MED LIST changes: -DICY20TA11 PO; +DICY20TA20 PO
[2021-10-12 10:37] LABS: HEMATOCRIT 39.9 % (36.0-47.0); MEAN CORPUSCULAR HEMOGLOBIN 29.5 pg (27.0-33.0); MEAN CORPUSCULAR HGB CONC 32.6 g/dl (32.0-36.5); MEAN CORPUSCULAR VOLUME 90.7 fl (80.0-96.0); PLATELET COUNT, AUTOMATED 272 10^3/uL (150-450); WHITE BLOOD COUNT 6.5 10^3/uL (4.0-10.0)
[2021-10-12 11:11] LABS: ALBUMIN 3.8 GM/DL (3.2-5.2); ALT/SGPT 35 U/L (12-78); BILIRUBIN,TOTAL 0.7 MG/DL (0.2-1.0); BLOOD UREA NITROGEN 17 MG/DL (7-18); CALCIUM LEVEL 9.6 MG/DL (8.8-10.2); CARBON DIOXIDE LEVEL 29 MEQ/L (21-32); CHLORIDE LEVEL 110 MEQ/L (98-107); CREATININE FOR GFR 0.77 MG/DL (0.55-1.30); GLOMERULAR FILTRATION RATE > 60.0 (>39); GLUCOSE, FASTING 94 MG/DL (70-100); POTASSIUM SERUM 4.2 MEQ/L (3.5-5.1); SODIUM LEVEL 142 MEQ/L (136-145); TOTAL PROTEIN 7.4 GM/DL (6.4-8.2)
== END ==
LOC: M PLALAB 08:08
PROVIDERS: ATTEND Nurse Practitioner Adult Health
DX: R19.7 Diarrhea, unspecified (principal)

== ENCOUNTER → 2022-08-04 | Outpatient (CLI) | payer MEDICARE ==
[~2022-08-04] MED LIST changes: -D31000TA2 PO; +VITA100093 PO
[2022-08-04 14:37] LABS: ALT/SGPT 22 U/L (12-78); BILIRUBIN,TOTAL 0.7 MG/DL (0.2-1.0); BLOOD UREA NITROGEN 19 MG/DL (7-18); CARBON DIOXIDE LEVEL 29 MEQ/L (21-32); CHLORIDE LEVEL 104 MEQ/L (98-107); CHOLESTEROL LEVEL 161 MG/DL (<200); CHOLESTEROL RISK RATIO 3.096 (<5); CREATININE FOR GFR 0.77 MG/DL (0.55-1.30); GLOMERULAR FILTRATION RATE > 60.0 (>39); GLUCOSE, FASTING 102 MG/DL (70-100); HDL CHOLESTEROL 52 MG/DL (>40); LDL CHOLESTEROL 98 MG/DL (<100); NON-HDL-C 109 MG/DL; POTASSIUM SERUM 4.5 MEQ/L (3.5-5.1); SODIUM LEVEL 138 MEQ/L (136-145); TOTAL PROTEIN 7.7 GM/DL (6.4-8.2); TRIGLYCERIDES LEVEL 54 MG/DL (<150)
[2022-08-04 14:58] LABS: HEMOGLOBIN A1c 5.6 %
[2022-08-04 15:26] LABS: TOTAL 25(OH) VITAMIN D 49.8 NG/ML (30.0-100.0); VITAMIN B12 LEVEL 1319 PG/ML (247-911)
== END ==
LOC: M PLALAB 09:56
PROVIDERS: ATTEND Nurse Practitioner Adult Health
DX: R73.03 Prediabetes (principal); E55.9 Vitamin D deficiency, unspecified; E88.81 Metabolic syndrome and other insulin resistance; D51.9 Vitamin B12 deficiency anemia, unspecified

== ENCOUNTER → 2022-09-07 | Outpatient (CLI) | payer MEDICARE ==
[~2022-09-07] MED LIST changes: +PROHANCE 279.3MG/ML 15ML VIAL ONE
== END ==
LOC: M PLAIMG 08:52
PROVIDERS: ATTEND Obstetrics & Gynecology
DX: T85.49XA Other mechanical complication of breast prosthesis and implant, initial encounter (principal); Y83.1 Surgical operation with implant of artificial internal device as the cause of abnormal reaction of the patient, or of later complication, without mention of misadventure at the time of the procedure; Z85.3 Personal history of malignant neoplasm of breast; N63.20 Unspecified lump in the left breast, unspecified quadrant
CPT/HCPCS: A9576; C8908

== ENCOUNTER → 2022-10-24 | Outpatient (CLI) | payer MEDICARE ==
[~2022-10-24] MED LIST changes: -PROHANCE 279.3MG/ML 15ML VIAL ONE
== END ==
LOC: M WHC 15:35
PROVIDERS: ATTEND Obstetrics & Gynecology
DX: R92.8 Other abnormal and inconclusive findings on diagnostic imaging of breast (principal); N60.12 Diffuse cystic mastopathy of left breast

== ENCOUNTER → 2023-06-22 | Outpatient (CLI) | payer MEDICARE ==
[~2023-06-22] MED LIST changes: +PANT40TA29 PO; +VITA400T26 PO
[2023-06-22 15:22] LABS: HEMOGLOBIN A1c 5.1 % (4.0-6.0)
[2023-06-22 15:40] LABS: ALKALINE PHOSPHATASE 109 U/L (46-116); ALT/SGPT 37 U/L (7.0-40); AST/SGOT 21 U/L (<34); BILIRUBIN,TOTAL 0.7 MG/DL (0.3-1.2); BLOOD UREA NITROGEN 22 MG/DL (9-23); CARBON DIOXIDE LEVEL 29 MMOL/L (20-31); CHLORIDE LEVEL 105 MMOL/L (98-107); CREATININE FOR GFR 0.71 MG/DL (0.55-1.30); GLOMERULAR FILTRATION RATE > 60.0 (>39); GLUCOSE, FASTING 91 MG/DL (74-106); POTASSIUM SERUM 4.6 MMOL/L (3.5-5.1); SODIUM LEVEL 141 MMOL/L (136-145)
[2023-06-22 15:41] LABS: THYROID STIMULATING HORMONE 1.687 uIU/ML (0.55-4.78); VITAMIN B12 LEVEL 535 PG/ML (211-911)
== END ==
LOC: M PLALAB 09:23
PROVIDERS: ATTEND Nurse Practitioner Adult Health
DX: R73.03 Prediabetes (principal); D51.8 Other vitamin B12 deficiency anemias

== ENCOUNTER 2023-09-08 07:33 | Day surgery (SDC) | payer MEDICARE ==
[~2023-09-08] VITALS: Ht 157.5 cm; Wt 73.2 kg
[~2023-09-08 07:33] MED LIST changes: +NS 1,000 ML IV ONE
[2023-09-08] MEDS ORDERED: propofoL 200 MG/20 ML VIAL As Ordered ONE (09:12)
[2023-09-08 09:39] VITALS: TEMP 97.5
[2023-09-08 09:54] VITALS: BP 147/75; O2SAT 100
== END 2023-09-08 10:05 | disposition home or self-care (01) ==
LOC: M OPP 07:33
PROVIDERS: ATTEND Internal Medicine Gastroenterology
DX: Z12.11 Encounter for screening for malignant neoplasm of colon (principal); K63.5 Polyp of colon; K57.30 Diverticulosis of large intestine without perforation or abscess without bleeding; K64.8 Other hemorrhoids; K64.4 Residual hemorrhoidal skin tags; Z86.010 Personal history of colon polyps

== ENCOUNTER → 2023-09-11 | Outpatient (CLI) | payer MEDICARE ==
[~2023-09-11] MED LIST changes: -NS 1,000 ML IV ONE
== END ==
LOC: M WHC 12:10
PROVIDERS: ATTEND Obstetrics & Gynecology
DX: Z12.31 Encounter for screening mammogram for malignant neoplasm of breast (principal); Z13.820 Encounter for screening for osteoporosis; M85.89 Other specified disorders of bone density and structure, multiple sites; Z98.82 Breast implant status; Z85.3 Personal history of malignant neoplasm of breast; Z90.11 Acquired absence of right breast and nipple
CPT/HCPCS: 77067; 77080; G0279

== ENCOUNTER → 2024-02-22 | Outpatient (CLI) | payer MEDICARE ==
[2024-02-22 13:35] LABS: HEMATOCRIT 39.1 % (36.0-47.0); HEMOGLOBIN 12.7 g/dl (12.0-15.5); MEAN CORPUSCULAR HEMOGLOBIN 30.2 pg (27.0-33.0); MEAN CORPUSCULAR HGB CONC 32.5 g/dl (32.0-36.5); MEAN CORPUSCULAR VOLUME 92.9 fl (80.0-96.0); PLATELET COUNT, AUTOMATED 430 10^3/uL (150-450); RED BLOOD COUNT 4.21 10^6/uL (4.00-5.40); WHITE BLOOD COUNT 9.5 10^3/uL (4.0-10.0)
[2024-02-22 13:38] LABS: TOTAL 25(OH) VITAMIN D 56.2 NG/ML (20.0-100.0)
[2024-02-22 13:42] LABS: ALBUMIN 3.9 G/DL (3.2-5.2); ALKALINE PHOSPHATASE 371 U/L (46-116); ALT/SGPT 47 U/L (7.0-40); AST/SGOT 35 U/L (<34); BILIRUBIN,TOTAL 0.6 MG/DL (0.3-1.2); BLOOD UREA NITROGEN 21 MG/DL (9-23); CARBON DIOXIDE LEVEL 28 MMOL/L (20-31); CHLORIDE LEVEL 103 MMOL/L (98-107); CHOLESTEROL LEVEL 138 MG/DL (<200); CHOLESTEROL RISK RATIO 2.86 (<5); CREATININE FOR GFR 0.65 MG/DL (0.55-1.30); GLOMERULAR FILTRATION RATE > 60.0 (>32); GLUCOSE, FASTING 89 MG/DL (74-106); HDL CHOLESTEROL 48.1 MG/DL (>40); LDL CHOLESTEROL 73.5 MG/DL (<100); NON-HDL-C 89.9 MG/DL; POTASSIUM SERUM 4.5 MMOL/L (3.5-5.1); SODIUM LEVEL 139 MMOL/L (136-145); TOTAL PROTEIN 7.4 G/DL (5.7-8.2); TRIGLYCERIDES LEVEL 82 MG/DL (<150)
[2024-02-22 13:43] LABS: FOLATE > 24.0 NG/ML (>5.4); VITAMIN B12 LEVEL > 2000 PG/ML (211-911)
== END ==
LOC: M PLALAB 10:43
PROVIDERS: ATTEND Nurse Practitioner Adult Health
DX: K21.9 Gastro-esophageal reflux disease without esophagitis (principal); E55.9 Vitamin D deficiency, unspecified; D51.8 Other vitamin B12 deficiency anemias; I10 Essential (primary) hypertension

== ENCOUNTER → 2024-06-11 | Outpatient (CLI) | payer MEDICARE ==
[2024-06-11 13:41] LABS: ALBUMIN 3.8 G/DL (3.2-5.2); ALKALINE PHOSPHATASE 122 U/L (46-116); ALT/SGPT 25 U/L (7.0-40); AST/SGOT 25 U/L (<34); BILIRUBIN,TOTAL 1.1 MG/DL (0.3-1.2); BLOOD UREA NITROGEN 11 MG/DL (9-23); CALCIUM LEVEL 9.9 MG/DL (8.3-10.6); CARBON DIOXIDE LEVEL 28 MMOL/L (20-31); CHLORIDE LEVEL 103 MMOL/L (98-107); CREATININE FOR GFR 0.73 MG/DL (0.55-1.30); GLOMERULAR FILTRATION RATE > 60.0 (>32); GLUCOSE, FASTING 81 MG/DL (74-106); POTASSIUM SERUM 4.7 MMOL/L (3.5-5.1); SODIUM LEVEL 138 MMOL/L (136-145); TOTAL PROTEIN 7.1 G/DL (5.7-8.2); VITAMIN B12 LEVEL 1442 PG/ML (211-911)
== END ==
LOC: M PLALAB 11:31
PROVIDERS: ATTEND Nurse Practitioner Adult Health
DX: D51.8 Other vitamin B12 deficiency anemias (principal); I10 Essential (primary) hypertension; E55.9 Vitamin D deficiency, unspecified

== ENCOUNTER → 2024-10-17 | Outpatient (CLI) | payer MEDICARE | LOC: M WHC 09:01 | PROVIDERS: ATTEND Student in an Organized Health Care Education/Training Program | DX: Z12.31 Encounter for screening mammogram for malignant neoplasm of breast (principal); Z85.3 Personal history of malignant neoplasm of breast; R92.313 Mammographic fatty tissue density, bilateral breasts; Z98.82 Breast implant status; Z90.11 Acquired absence of right breast and nipple | CPT/HCPCS: 77067; G0279 ==